=== PATIENT | female | born 1930 | race Caucasian/White ===

== ENCOUNTER 2016-04-26 12:36 | Inpatient (IN) | payer MEDICARE ==
--- NOTE | ~2016-04-26 | CN ---
Consultation Report [facility] [address] [place]. [address] NAME: SAMSON PALAFOX : 30 STATUS : ADM IN PAT#: [id number] AGE: 86 ADM/REG DATE : 04/26/16 MR#: [id number] REPORT SERV DATE: 04/27/16 DICTATED BY: DATE: REPORT STATUS : Draft TRANSCRIBED BY: MODL DATE: 04/27/16 NEUROLOGY CONSULTATION DATE OF CONSULTATION: 04/27/2016 REASON FOR CONSULT: Left eye ptosis. HISTORY OF PRESENT ILLNESS: This is an 86-year-old female who presented to [facility] secondary to acute onset of left eyelid ptosis with the patient's family, who reported the symptoms started on 04/26/2015 in the morning when the patient woke up. The patient, otherwise, does not appear to have vision difficulties and does not appear to have diplopia. The patient's family reports maybe mild swelling in the left face, but otherwise denies notice any left or any focal weakness or numbness. The patient does not appear to have any dysarthria or any language difficulty except for language difficulty and confusion that was at baseline secondary to the patient's dementia. The patient does have a diagnosis of al Alzheimer disease for the past six to seven years with the patient noted to have progressive memory decline especially with recent memory. The patient was noted to have difficulties with names as well as place. In addition, the patient was noted to start having problems recognizing people. The patient also required prompting with activities of daily living, but still able to perform most activities of daily living by herself. The patient's family denies similar events in the past with eyelid ptosis and denies any focal weakness. The patient does have recent coughing, but no other recent illness was noted. No fever or chill was otherwise reported. PAST MEDICAL HISTORY: Significant for Alzheimer disease for the past six to eight years with the patient still able to perform activities of daily living, but require prompting a help. The patient in addition was starting to have difficulty recognizing friends and family members. The patient in addition was also noted to have coronary artery disease, history of coronary artery bypass surgery, cardiac catheterization, hypertension, hyperlipidemia, history of breast cancer, on tamoxifen, paroxysmal atrial fibrillation status post cardioversion with the patient currently on Eliquis and amiodarone, history of congestive heart failure, and chronic kidney disease. ALLERGIES: TO BEE STING. FAMILY HISTORY: Significant for coronary artery disease. REVIEW OF SYSTEMS: Negative except for those mentioned in the HPI. HOME MEDICATIONS: Consist of amiodarone, Eliquis, aspirin, calcium with vitamin D, Ceftin, vitamin D3, coenzyme Q10, vitamin B12, Colace, EpiPen, vitamin D, Lasix, Mucinex, Namenda, Claritin, levothyroxine, Toprol, Remeron, potassium, Seroquel, Exelon, Crestor, Senokot, tamoxifen, . Consultation Report [place] [id number] [place]. [address] NAME: SAMSON PALAFOX : 30 STATUS : ADM IN [facility]#: [id number] AGE: 86 ADM/REG DATE : 04/26/16 MR#: [id number] REPORT SERV DATE: 04/27/16 DICTATED BY: DATE: REPORT STATUS : Draft TRANSCRIBED BY: MODL DATE: 04/27/16 SOCIAL HISTORY: The patient denies tobacco, alcohol, or recreational drug usage. PHYSICAL EXAMINATION: VITAL SIGNS: Overnight, the patient was noted to have vital signs with T-max of 98.9, heart rate of 71 to 82, respiration of 19 to 29. GENERAL: The patient is well developed, well nourished, in no acute distress. CARDIOVASCULAR: Regular rate and rhythm. No carotid bruits were otherwise auscultated. PULMONARY: Clear to auscultation bilaterally. NEUROLOGICAL: Generally, the patient is alert and oriented to self only. She is not recognizing family member at bedside. She is unable to provide name of a place, type of a building, or year or month. The patient is able to follow most of the simple and 2-step commands, and will have difficulties with complex commands. Decreased attention span at the time of evaluation. The patient was noted to have difficulties with registration and recall. Cranial nerves 2 through 12. Pupils equal, round, and reactive to light. At the time of evaluation, conjugate gaze was seen. The patient was noted to have left-sided ptosis with difficulty opening the left eyelid at all. Otherwise, bilateral frontal crease was noted to be normal with the patient noted to have questionable decreased nasolabial fold on the appeared symmetrical smile. Midline tongue. Normal palatal movement. The patient was noted to have mild decreased hearing, reports symmetrical sensation bilaterally. The patient's extraocular eye movement is noted to be mildly restricted with upward movement toward the left, but otherwise, noted to be intact. The patient demonstrated 5/5 bilateral upper and lower extremity strength. Normal muscle bulk and tone. Deep tendon reflex was 2+ throughout. No apparent ataxia was seen. Gait was not evaluated at time of evaluation. LABORATORY STUDIES: Demonstrated white blood cell count of 3.9, hemoglobin of 11.9, hematocrit of 36.4, and platelet count of 97. Chemistry panel: Sodium 144, potassium 3.8, chloride 108, bicarb 25, BUN of 11, creatinine 0.95, glucose of 93, calcium of 7.8, magnesium of 2.2. CT scan of the brain otherwise demonstrated no acute process. MRI of the brain is pending. IMPRESSION: Eyelid ptosis in the left with symmetrical pupillary reaction, possible decreased vertical eye movement with a leftward gaze. Question for associated decreased nasolabial fold. We will check MRI of the brain without contrast and MRA of the head without contrast for evaluation. Meanwhile recommending continue Eliquis and Lipitor for now. Differential diagnosis including superior brain tumor cranial nerve 3 palsy versus stroke. RECOMMENDATION: 1. MRI of the brain without contrast. 2. MRA of the brain without contrast. 3. Continue Lipitor and Eliquis. 4. Fasting lipid panel and hemoglobin A1c. 5. Will send for myasthenia gravis lab study. Consultation Report [place] [id number] [place]. [address] NAME: SAMSON PALAFOX : 30 STATUS : ADM IN PAT#: [id number] AGE: 86 ADM/REG DATE : 04/26/16 MR#: [id number] REPORT SERV DATE: 04/27/16 DICTATED BY: DATE: REPORT STATUS : Draft TRANSCRIBED BY: MODL DATE: 04/27/16 [facility]/MODL Carrington Lopez MD / [id number] CC: MD Lisa Lynch
--- NOTE | ~2016-04-26 | DS ---
Discharge Summary [facility] [address] [place]. [address] NAME: SAMSON PALAFOX : 30 STATUS : DIS IN PAT#: [id number] AGE: 86 ADM/REG DATE : 04/26/16 MR#: [id number] REPORT SERV DATE: 05/03/16 DICTATED BY: ECHO MIRAMONTES DATE: 05/02/16 REPORT STATUS : Draft TRANSCRIBED BY: MODL DATE: 05/02/16 ADMISSION DATE: 04/26/2016 DISCHARGE DATE: 05/01/2016 CONDITION ON DISCHARGE: Stable. DISPOSITION: Discharge back to her assisted living facility. She lives at [facility] and we are discharging patient back there in stable condition. DIAGNOSES ON DISCHARGE: 1. Pneumonia, probably left lower lobe early pneumonia that probably is evolving which got resolved with IV antibiotics. 2. Influenza A positive. Diagnoses which are all chronic in this patient include the followin. Coronary artery disease with CABG in 1997. 2. History of paroxysmal atrial fibrillation for which she is on Eliquis and amiodarone after she failed a HUBERT. 3. Moderately advanced dementia, for which patient is requiring to stay at an assisted living facility. 4. History of congestive heart failure, probably a combination of systolic and diastolic heart failure, however, as her ejection fraction that was most recent was 55%, it is probably heart failure with preserved ejection fraction. 5. History of chronic kidney disease, stage 3. 6. Chronic hyponatremia, which is stable. 7. Hypertension and hyperlipidemia, which are stable. 8. History of breast cancer - patient is on tamoxifen which is also stable at this time. BRIEF HOSPITAL COURSE: The patient is an 86-year-old white female patient, who was admitted to the hospital with signs and symptoms as outlined in history and physical exam. Essentially, she was admitted with a diagnosis of being influenza A positive, possible left lower lobe pneumonia and possible Smith's palsy on the left side of the eye as the patient had left eye ptosis too. The patient also had an elevated troponin upon admission and hence with a history of coronary artery disease and atrial fibrillation. The patient was also admitted to make sure that she did not have an acute coronary event again. The patient was started on IV antibiotics, started on Tamiflu and given supportive and symptomatic care. A Neurology consult was obtained for the left eye ptosis. An MRI of the brain and an MRA came back with no acute CVA. 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 The patient also had a test done for myasthenia gravis that came back negative. The patient's atrial fibrillation remained controlled throughout hospitalization as the patient has already been anticoagulated with Eliquis. This was continued and her amiodarone was continued too and she did well. Once the patient's breathing improved and she felt better overall, she is being discharged back to [facility] in stable condition. Discharge Summary [facility] [address] [place]. [address] NAME: SAMSON PALAFOX : 30 STATUS : DIS IN PAT#: [id number] AGE: 86 ADM/REG DATE : 04/26/16 MR#: [id number] REPORT SERV DATE: 05/03/16 DICTATED BY: ECHO MIRAMONTES DATE: 05/02/16 REPORT STATUS : Draft TRANSCRIBED BY: CECI DATE: 05/02/16 DISCHARGE MEDICATIONS: She is being discharged on the following medications: Amiodarone 100 mg p.o. daily, aspirin 81 mg p.o. daily, Lasix 40 mg p.o. daily, Levothyroxine 137 mcg p.o. daily. Claritin 10 mg p.o. daily. Toprol-XL 25 mg p.o. daily. Remeron 15 mg p.o. daily. Namenda XR 28 mg p.o. daily. Potassium chloride 10 mEq p.o. daily. Exelon patch 13.3 mg topically daily. Crestor 40 mg p.o. daily. Tamoxifen 20 mg p.o. daily. Eliquis 5 mg p.o. b.i.d. next Seroquel 25 mg p.o. t.i.d. Mucinex 600 mg p.o. b.i.d. LABORATORY STUDIES: I have the following labs on this patient upon discharge. Her blood cultures have come back with no growth in four days. Her CBC has come back completely normal. Her platelets were a little low at 104, but this was stable. Electrolyte profile was normal and her mild hypokalemia which showed potassium of 3 was corrected before discharge. Her BUN is 4, creatinine is 0.7. Hemoglobin A1c was 6.5. Culture of the upper respiratory tract did not show any growth of any strep. Her BNP came back at 236.1, which is probably chronically elevated because of chronic diastolic heart failure. Her procalcitonin came back normal at 0.12. Her strep screen came back negative. Her influenza screen for A and B came back positive for influenza A which is the reason why she was started on Tamiflu 75 mg p.o. b.i.d. until discharge. Radiological studies the patient has had include a brain CT scan without contrast, which came back with no acute stroke. The patient also had bilateral carotid ultrasound that did not show any significant stenosis in any of the carotid arteries, MRI of the brain without contrast and MRA which again did not show any evidence of any acute infarct and hence it was deemed that the left eye ptosis is secondary to an isolated cranial nerve 3 palsy and there is nothing to do about it now. This could also be Smith's palsy. Hence, the patient is being discharged back to [facility] in stable condition. I have spent about 40 minutes in dictating this discharge summary including [id number] encounter with the patient. CHRISTIAN/CECI Echo Miramontes M.D. / [id number]
--- NOTE | ~2016-04-26 | HP ---
History And Physical [place] [address] [place]. [address] NAME: SAMSON PALAFOX : 30 STATUS : ADM IN PAT#: [id number] AGE: 86 ADM/REG DATE : 04/26/16 MR#: [id number] REPORT SERV DATE: 04/26/16 DICTATED BY: ANTHONY RUSSELL DATE: 04/26/16 REPORT STATUS : Draft TRANSCRIBED BY: MODL DATE: 04/26/16 DATE OF ADMISSION: 04/26/2016 HISTORY OF PRESENT ILLNESS: The patient is a very pleasant 86-year-old female, resident of [facility], presented to [facility] accompanied with her two daughters who reported that she developed cough Thursday and she was coughing, not eating, not drinking, and not feeling well. Cough is nonproductive, but she is congested as well as she developed left eye drop today. She is not complaining of any visual changes, but the left eye drop is present as well as she does not have any chest pain, no shortness of breath. No fever. No rash. No headache. No other focal neurological deficit. All 14-point system review done except what is stated in the history of present illness. PAST MEDICAL HISTORY: Known to have history of coronary artery disease with a history of coronary artery bypass grafting in 1997; history of cardiac catheterization in 2009 with occluded arteries; hypertension; hyperlipidemia; history of breast cancer, on tamoxifen; history of paroxysmal atrial fibrillation with a history of HUBERT cardioversion in the past, currently on Eliquis and amiodarone; history of dementia; history of congestive heart failure, noted a systolic, but according to the echocardiogram present in the computer in 2012, her ejection fraction was 55%, I do not know if there was any other echocardiogram done afterwards, needs to be clarified; history of hypothyroidism, on replacement; history of chronic kidney disease, stage III; and history of chronic hyponatremia in the past. ALLERGIES: SHE IS ONLY ALLERGIC TO BEE STINGS. THERE IS NO MEDICATION-RELATED ALLERGY. HOME MEDICATIONS: Amiodarone 100 mg a day, Eliquis 5 mg p.o. b.i.d., aspirin 81 mg daily, calcium with vitamin D one dose p.o. daily, cefuroxime 250 p.o. b.i.d., vitamin D3 1000 units daily, coenzyme Q 100 mg a day, vitamin B12 500 mg daily, Colace 100 mg a day, EpiPen daily, vitamin D 50,000 daily, Lasix 40 daily, Mucinex 600 with breakfast, levothyroxine 137 a day, Claritin 10 a day, Namenda XR 28 daily, Toprol-XL 25 a day, Remeron 15 a day, potassium chloride 10 mEq a day, Seroquel 25 mg three times a day, Exelon 13.3 mg topical daily, Crestor 40 mg a day, Senokot two tablets with supper, tamoxifen 20 mg a day, Bactrim 100 mg a day, multivitamins PreserVision daily. PAST SURGICAL HISTORY: Includes left breast cancer with lumpectomy, right breast cancer, left mastectomy, and history of coronary artery bypass grafting. SOCIAL HISTORY: The patient is resident of [facility]. Her primary care physician is Dr. Helder Alcantar, but she sees nurse practitioner. She is a social drinker. Not currently smoking, smoked in a long time ago. Retired teacher of elementary school. She has two daughters who are at the bedside. FAMILY HISTORY: Positive for coronary artery disease on both sides. REVIEW OF SYSTEMS: All 14-point review of systems done are negative except what is stated in the history of present illness. History And Physical [address] [address] NAME: SAMSON PALAFOX : 30 STATUS : ADM IN [facility]#: [id number] AGE: 86 ADM/REG DATE : 04/26/16 MR#: [id number] REPORT SERV DATE: 04/26/16 DICTATED BY: ANTHONY RUSSELL DATE: 04/26/16 REPORT STATUS : Draft TRANSCRIBED BY: CECI DATE: 04/26/16 PHYSICAL EXAMINATION: GENERAL: Overweight female, not in acute distress, resting quietly. VITAL SIGNS: Blood pressure 135/62, heart rate 70, respiratory rate 18, and oxygen saturation 97% on room air. HEENT: Head atraumatic and normocephalic. Conjunctivae are clear. Pupils are equal and reactive to light and accommodation. Extraocular muscles are intact. NECK: Supple. Trachea is midline. No supraclavicular or cervical lymphadenopathy. LUNGS: Coarse breath sounds bilaterally with some rhonchi at the bases, slightly decreased respiratory effort with dry cough. CARDIOVASCULAR SYSTEM: Regular rate and rhythm. Point of maximal impulse not displaced. ABDOMEN: Soft, nontender, and nondistended. Positive normoactive bowel sounds. EXTREMITIES: No clubbing, cyanosis, or edema. SKIN: Normal color and turgor. NEUROLOGIC: Cranial nerves III through XII are intact except ptosis on the left side. There is no visual abnormality on the left side. Deep tendon reflexes are 2/4 bilaterally in the upper and lower extremities. Muscle strength is 5/5 bilaterally in the upper and lower extremities. Sensations are intact. Can follow commands. Can answer questions. PSYCHIATRIC: Normal mood and affect. LABORATORY RESULTS: Sodium 139, potassium 3.8, chloride 103, carbon dioxide 26, BUN 14, creatinine 1.22, blood sugar is 89, AST 98, ALT 52, and troponin 0.1. Her creatinine on 12/07/2013 was 1.2, so looks like her baseline creatinine. White count 6, hemoglobin 12.9, hematocrit 39.7, and platelet count 106. PT 15.2 and INR 1.2. UA did not show any evidence of urinary infection. Chest x-ray done today, no acute cardiopulmonary abnormality, stable eventrated left diaphragm, coronary artery bypass grafting changes and surgical clips over the epigastrium, stable calcified right upper lobe granuloma. CT of the brain without contrast done in the emergency room, no acute intracranial abnormality, progressive since 2013, chronic ischemic white matter changes with demyelination disease. Troponin 0.12. She has positive influenza A. Strep screen is negative. EKG showed atrial fibrillation with a junctional pacemaker with premature ventricular contractions, inferoposterior infarction of undetermined age, ST-T waves abnormality, prolonged QT, and ventricular rate of 83. ASSESSMENT: This is a very pleasant 86-year-old female with a past medical history of atrial fibrillation, coronary artery disease, presented with: 1. Influenza. 2. Possible pneumonia. 3. Left eye ptosis, possible cranial nerve palsy, possible Smith's palsy versus cerebrovascular accident. 4. Elevated troponin without any chest pain, possible demand ischemia versus acute coronary event. 5. History of coronary artery disease. 6. History of atrial fibrillation. 7. Dementia. History And Physical [address] [address] NAME: SAMSON PALAFOX : 30 STATUS : ADM IN [facility]#: [id number] AGE: 86 ADM/REG DATE : 04/26/16 MR#: [id number] REPORT SERV DATE: 04/26/16 DICTATED BY: ANTHONY RUSSELL DATE: 04/26/16 REPORT STATUS : Draft TRANSCRIBED BY: CECI DATE: 04/26/16 PLAN: 1. We will admit the patient to telemetry bed. For her influenza, we will put her on Tamiflu, although her symptoms started on Thursday, she may need a couple of days. 2. Possible pneumonia with her cough being very deep, I will order CT on the chest without contrast, blood cultures, and procalcitonin level. I will put her on Rocephin and azithromycin, and will check the CT of the chest without contrast. 3. Left eye ptosis. This could be a possible cranial nerve palsy from viral flu influenza versus Smith's palsy versus possible CVA, although the patient does not have any other focal symptoms, so probably isolated cranial nerve palsy. She has preserved vision and all ocular movements are intact on the left eye. I am going to give the patient aspirin 325 mg a day, at home, she takes 81, so we will increase to 325, and will do MRI and MRA of the brain. If she does not have stroke, her aspirin should be decreased to her home dose 81 mg a day and neurologist also will be consulted. Elevated troponin with a history of coronary artery disease, but asymptomatic. Aspirin will be given and we will continue her cardiac medications. We will check serial troponins. I think this is probably demand ischemia. We will ask operator and truck driver to see this patient in consultation. Atrial fibrillation, currently rate controlled. 4. Polypharmacy. 5. Dementia. My partner will see this patient starting tomorrow morning. /CECI Anthony Russell M.D. / [id number] CC: MD MARY Lynch SHERRY R.
[~2016-04-26 12:36] MED LIST: ALEVE220 MG PO; ARICEPT5 PO; ASAB PO; ATEN25 PO; BESIVANCE0.6 % OPH; CALTRAT600 PO; CIP5 PO; CORDARONE PO; CRESTOR40 MG PO; DIGITEK0.25 MG PO; DIOVAN HC1 PO; DIOVAN HCT160 MG/25 PO; DSS PO; ELIQUIS 2.5 MG2.5 MG PO; ELIQUIS 5 MG TAB5 MG PO; EPIPEN0.3 IM; FOSAMAX35 MG PO; GANIDIN NR100 MG/5 M PO; HALF81 PO; HCTZ25B PO; I VITE PO; I-VITE PO; IMOD PO; K-TABS10 MEQ PO; KCL PO; KCL40UDL PO; KLOR-CON 1010 MEQ PO; KLOR-CON M2020 MEQ PO; L20 PO; L40 PO; LEVOTHYROXIN125 MCG PO; LOP25 PO; MAALOX MAX PO; MACRODANTIN 10100 MG PO; MINOCIN100 PO; MIRALAXPKT PO; MOMUD PO; MUCINEX DM1 TAB PO; NAMENDA5 PO; NAMENXR28 PO; NIACIN 500 PO; NIASPAN500 PO; NOLV10 PO; NORCO1 TA1 PO; OCUVITE PO; OSTEOPOROSIS MED PO; PACERONE100 MG PO; PR12.5 PO; PROLENSA1.6 ML OPH; REM15 PO; REMERON45 MG PO; SENTAB PO; SYN125 PO; T PO; TAMOXIFEN20 M1 PO; TESS PO; VIACTIV PO; ZETIA PO; ZOFRAN4 PO; [UNRECOGNIZED DRUG - OTHER] PO; [UNRECOGNIZED DRUG - OTHER] PO
[2016-04-26 13:47] LABS: BASOPHILS 0.2 %; BASOPHILS ABSOLUTE 0.01 10/3/uL (0.0-0.16); EOSINOPHILS 0 %; HEMATOCRIT 39.7 % (36.0-48.0); HEMOGLOBIN 12.9 g/dL (12.0-16.0); IMMATURE GRANULOCYTES 0.3 %; IMMATURE GRANULOCYTES ABSOLUTE 0.02 10/3/uL (0.0-0.11); LYMPHOCYTES 25.8 %; LYMPHOCYTES ABSOLUTE 1.54 10/3/uL (0.67-4.30); MANUAL DIFF NO %; MEAN CORPUS HGB CONC 32.5 g/dL (32.0-36.0); MEAN CORPUSCULAR HEMOGLOB 28.4 pg (26.0-34.0); MEAN CORPUSCULAR VOLUME 87.4 fL (80-100); MEAN PLATELET VOLUME 11.7 fL (9.2-13.0); MONOCYTES 18.1 %; MONOCYTES ABSOLUTE 1.08 10/3/uL (0.21-1.20); NEUTROPHILS 55.6 %; NEUTROPHILS ABSOLUTE 3.33 10/3/uL (2.02-8.40); PLATELET COUNT 106 10/3/uL (150-400); RED CELL COUNT 4.54 10/6/uL (4.0-5.6)
[2016-04-26 13:56] LABS: INTERNATIONAL NORMAL RATI 1.2 UNITS (-); PARTIAL THROMBO TIME 25.2 SEC (22.5-37.2); PROTIME (NOT ORD) 15.2 SEC (12.0-14.5)
[2016-04-26 14:00] LABS: INFLUENZA A SCREEN POSITIVE (NEGATIVE)
[2016-04-26 14:12] LABS: INFLUENZA B SCREEN NEGATIVE (NEGATIVE)
[2016-04-26] MEDS ORDERED: PACERONE200 MG PO (14:28)
[2016-04-26] MEDS ORDERED: CO Q-10100 MG PO (14:29)
[2016-04-26] MEDS ORDERED: DSS PO (14:29)
[2016-04-26] MEDS ORDERED: ASAB PO (14:29)
[2016-04-26] MEDS ORDERED: CLARIT10 PO (14:30)
[2016-04-26] MEDS ORDERED: REM15 PO (14:30)
[2016-04-26] MEDS ORDERED: TOPXL25 PO (14:30)
[2016-04-26] MEDS ORDERED: L40 PO (14:30)
[2016-04-26] MEDS ORDERED: LEVOTHYROXIN137 MCG PO (14:30)
[2016-04-26] MEDS ORDERED: NAMENXR28 PO (14:31)
[2016-04-26] MEDS ORDERED: MICRO-K10 MEQ PO (14:31)
[2016-04-26] MEDS ORDERED: CRESTOR40 MG PO (14:32)
[2016-04-26] MEDS ORDERED: SENTAB PO (14:32)
[2016-04-26] MEDS ORDERED: TAMOXIFEN20 M1 PO (14:32)
[2016-04-26] MEDS ORDERED: EXELON1 EACH TOP (14:32)
[2016-04-26] MEDS ORDERED: PROLOP100 PO (14:33)
[2016-04-26] MEDS ORDERED: VITD PO (14:34)
[2016-04-26] MEDS ORDERED: VIACTIV PO (14:34)
[2016-04-26] MEDS ORDERED: B12250T PO (14:34)
[2016-04-26] MEDS ORDERED: ELIQUIS 5 MG TAB5 MG PO (14:35)
[2016-04-26] MEDS ORDERED: VITAMIN D31000 UNIT PO (14:35)
[2016-04-26] MEDS ORDERED: SEROQUEL25 PO (14:36)
[2016-04-26] MEDS ORDERED: PRESERVISION A1 EAC1 PO (14:36)
[2016-04-26] MEDS ORDERED: EPIPEN0.3 IM (14:36)
[2016-04-26] MEDS ORDERED: CEFT2 PO (14:37)
[2016-04-26] MEDS ORDERED: MUCINEX600 MG PO (14:37)
[2016-04-26 14:51] LABS: ASCORBIC ACID (UR NOT ORDER) 40 (NEG); BILIRUBIN, URINE NEGATIVE (NEG); ER URINALYSIS TAT 0 Hrs 14 Mins; KETONE, URINE TRACE MG/DL (NEG); LEUKOCYTE ESTERASE(NOT OR NEG (NEG); NITRITE (URINE) NEG (NEG); WBC (NOT ORDERED) (RFLEX) 2 (0-5)
[2016-04-26 15:05] LABS: A/G RATIO 0.8 (0.7-1.9); ALBUMIN 2.7 G/DL (3.5-5.0); CHLORIDE, SERUM 103 MMOL/L (96-112); CREATININE 1.22 MG/DL (0.55-1.02); GFR AFRICAN AMERICAN 46 ML/MIN (>=60); GFR NON AFRICAN AMERICAN 40 ML/MIN (>=60); GLOBULIN 3.3 G/DL (2.5-4.1); GLUCOSE, SERUM 89 MG/DL (60-99); POTASSIUM, SERUM 3.8 MMOL/L (3.5-5.3); SGOT(AST) 98 U/L (5-40); SGPT(ALT) 52 U/L (5-65); SODIUM, SERUM 139 MMOL/L (135-148)
[2016-04-26 15:07] LABS: ALKALINE PHOSPHATASE 60 U/L (45-117); BUN (BLOOD UREA NITROGEN) 14 MG/DL (6-23); CALCIUM, SERUM 7.9 MG/DL (8.5-10.4); CO2 (CARBON DIOXIDE) 26 MMOL/L (24-34); TOTAL BILIRUBIN 0.8 MG/DL (0-1.2)
[2016-04-26 15:09] LABS: TROPONIN I 0.12 NG/ML (<0.05)
[2016-04-26 17:54] LABS: TROPONIN I 0.12 NG/ML (<0.05)
[2016-04-27 00:50] LABS: ULTRASENSITIVE TSH 2.1 MCIU/ML (0.358-3.740)
[2016-04-27 01:02] LABS: PROCALCITONIN 0.12 ng/mL (<0.5)
[2016-04-27 06:42] LABS: BASOPHILS 0 %; EOSINOPHILS 0.8 %; EOSINOPHILS ABSOLUTE 0.03 10/3/uL (0.0-0.53); HEMATOCRIT 36.4 % (36.0-48.0); HEMOGLOBIN 11.9 g/dL (12.0-16.0); LYMPHOCYTES 26.9 %; LYMPHOCYTES ABSOLUTE 1.05 10/3/uL (0.67-4.30); MEAN CORPUS HGB CONC 32.7 g/dL (32.0-36.0); MEAN CORPUSCULAR HEMOGLOB 29.5 pg (26.0-34.0); MEAN PLATELET VOLUME 11.7 fL (9.2-13.0); MONOCYTES ABSOLUTE 0.47 10/3/uL (0.21-1.20); NEUTROPHILS 60.3 %; NEUTROPHILS ABSOLUTE 2.36 10/3/uL (2.02-8.40); PLATELET COUNT 97 10/3/uL (150-400); RBC DISTRIBUTION WIDTH 16.1 % (12.0-16.0); RED CELL COUNT 4.04 10/6/uL (4.0-5.6); WHITE BLOOD CELLS 3.9 10/3/uL (4.5-10.5)
[2016-04-27 06:49] LABS: MANUAL DIFF NO %; MEAN CORPUSCULAR VOLUME 90.1 fL (80-100)
[2016-04-27 08:18] LABS: BUN (BLOOD UREA NITROGEN) 11 MG/DL (6-23); CALCIUM, SERUM 7.8 MG/DL (8.5-10.4); CHLORIDE, SERUM 108 MMOL/L (96-112); CO2 (CARBON DIOXIDE) 25 MMOL/L (24-34); CREATININE 0.95 MG/DL (0.55-1.02); FREE T4 1.47 NG/DL (0.76-1.46); GFR AFRICAN AMERICAN 63 ML/MIN (>=60); GFR NON AFRICAN AMERICAN 54 ML/MIN (>=60); GLUCOSE, SERUM 93 MG/DL (60-99); SODIUM, SERUM 144 MMOL/L (135-148)
[2016-04-27 08:19] LABS: POTASSIUM, SERUM 3.8 MMOL/L (3.5-5.3); TROPONIN I 0.08 NG/ML (<0.05)
[2016-04-27 08:20] LABS: CPK (IF ELEVATED MB BANDS) 234 U/L (0-200)
[2016-04-27 09:11] LABS: CK-MB 42.8 NG/ML
[2016-04-27 09:12] LABS: CKMB INDEX (NOT ORD) 18.3
[2016-04-28 05:54] LABS: BASOPHILS 0.2 %; BASOPHILS ABSOLUTE 0.01 10/3/uL (0.0-0.16); EOSINOPHILS 1.4 %; EOSINOPHILS ABSOLUTE 0.07 10/3/uL (0.0-0.53); HEMATOCRIT 38.4 % (36.0-48.0); HEMOGLOBIN 12.6 g/dL (12.0-16.0); IMMATURE GRANULOCYTES 0.4 %; IMMATURE GRANULOCYTES ABSOLUTE 0.02 10/3/uL (0.0-0.11); LYMPHOCYTES 41.9 %; LYMPHOCYTES ABSOLUTE 2.03 10/3/uL (0.67-4.30); MEAN CORPUS HGB CONC 32.8 g/dL (32.0-36.0); MEAN CORPUSCULAR HEMOGLOB 29.4 pg (26.0-34.0); MEAN CORPUSCULAR VOLUME 89.5 fL (80-100); MEAN PLATELET VOLUME 12.7 fL (9.2-13.0); MONOCYTES 9.9 %; MONOCYTES ABSOLUTE 0.48 10/3/uL (0.21-1.20); NEUTROPHILS 46.2 %; NEUTROPHILS ABSOLUTE 2.24 10/3/uL (2.02-8.40); PLATELET COUNT 100 10/3/uL (150-400); RED CELL COUNT 4.29 10/6/uL (4.0-5.6); WHITE BLOOD CELLS 4.9 10/3/uL (4.5-10.5)
[2016-04-28 05:55] LABS: MANUAL DIFF NO %
[2016-04-28 06:24] LABS: A/G RATIO 0.8 (0.7-1.9); ALBUMIN 2.6 G/DL (3.5-5.0); ALKALINE PHOSPHATASE 52 U/L (45-117); BUN (BLOOD UREA NITROGEN) 8 MG/DL (6-23); CALCIUM, SERUM 8.1 MG/DL (8.5-10.4); CHLORIDE, SERUM 107 MMOL/L (96-112); CO2 (CARBON DIOXIDE) 24 MMOL/L (24-34); CREATININE 0.82 MG/DL (0.55-1.02); GFR AFRICAN AMERICAN 75 ML/MIN (>=60); GFR NON AFRICAN AMERICAN 65 ML/MIN (>=60); GLOBULIN 3.1 G/DL (2.5-4.1); GLUCOSE, SERUM 101 MG/DL (60-99); PHOSPHORUS, SERUM 2.8 MG/DL (2.5-4.5); POTASSIUM, SERUM 3.6 MMOL/L (3.5-5.3); SGOT(AST) 72 U/L (5-40); SGPT(ALT) 37 U/L (5-65); SODIUM, SERUM 143 MMOL/L (135-148); TOTAL PROTEIN 5.7 G/DL (6.0-8.5)
[2016-04-28 06:33] LABS: CHOLESTEROL 119 MG/DL (< 200); HDL CHOLESTEROL 30 MG/DL (> 49); LDL CHOLESTEROL 69 MG/DL (< 130); NON-HDL CHOLESTEROL 89 MG/DL (< 160); TOTAL BILIRUBIN 0.2 MG/DL (0-1.2); TRIGLYCERIDE 103 MG/DL (< 150)
[2016-04-29 07:20] LABS: BASOPHILS 0.3 %; BASOPHILS ABSOLUTE 0.01 10/3/uL (0.0-0.16); EOSINOPHILS 3.6 %; EOSINOPHILS ABSOLUTE 0.13 10/3/uL (0.0-0.53); HEMATOCRIT 35.8 % (36.0-48.0); HEMOGLOBIN 11.4 g/dL (12.0-16.0); LYMPHOCYTES 47.1 %; LYMPHOCYTES ABSOLUTE 1.68 10/3/uL (0.67-4.30); MEAN CORPUS HGB CONC 31.8 g/dL (32.0-36.0); MEAN CORPUSCULAR HEMOGLOB 28.1 pg (26.0-34.0); MEAN CORPUSCULAR VOLUME 88.4 fL (80-100); MEAN PLATELET VOLUME 11.5 fL (9.2-13.0); MONOCYTES ABSOLUTE 0.32 10/3/uL (0.21-1.20); NEUTROPHILS ABSOLUTE 1.43 10/3/uL (2.02-8.40); PLATELET COUNT 99 10/3/uL (150-400); RBC DISTRIBUTION WIDTH 16.2 % (12.0-16.0); RED CELL COUNT 4.05 10/6/uL (4.0-5.6); WHITE BLOOD CELLS 3.6 10/3/uL (4.5-10.5)
[2016-04-29 07:25] LABS: MANUAL DIFF NO %
[2016-04-29 07:32] LABS: ALBUMIN 2.3 G/DL (3.5-5.0); BUN (BLOOD UREA NITROGEN) 6 MG/DL (6-23); CALCIUM, SERUM 7.8 MG/DL (8.5-10.4); CHLORIDE, SERUM 108 MMOL/L (96-112); CO2 (CARBON DIOXIDE) 28 MMOL/L (24-34); CREATININE 0.72 MG/DL (0.55-1.02); GFR AFRICAN AMERICAN 88 ML/MIN (>=60); GFR NON AFRICAN AMERICAN 76 ML/MIN (>=60); GLUCOSE, SERUM 93 MG/DL (60-99); PHOSPHORUS, SERUM 2.9 MG/DL (2.5-4.5); POTASSIUM, SERUM 3.4 MMOL/L (3.5-5.3); SODIUM, SERUM 145 MMOL/L (135-148)
[2016-05-01 07:06] LABS: BASOPHILS 0.2 %; BASOPHILS ABSOLUTE 0.01 10/3/uL (0.0-0.16); EOSINOPHILS 4.1 %; EOSINOPHILS ABSOLUTE 0.19 10/3/uL (0.0-0.53); HEMATOCRIT 37.5 % (36.0-48.0); HEMOGLOBIN 12.3 g/dL (12.0-16.0); IMMATURE GRANULOCYTES 0.2 %; IMMATURE GRANULOCYTES ABSOLUTE 0.01 10/3/uL (0.0-0.11); LYMPHOCYTES 33.3 %; LYMPHOCYTES ABSOLUTE 1.55 10/3/uL (0.67-4.30); MEAN CORPUS HGB CONC 32.8 g/dL (32.0-36.0); MEAN CORPUSCULAR HEMOGLOB 28.1 pg (26.0-34.0); MEAN CORPUSCULAR VOLUME 85.8 fL (80-100); MEAN PLATELET VOLUME 10.4 fL (9.2-13.0); MONOCYTES 11.4 %; MONOCYTES ABSOLUTE 0.53 10/3/uL (0.21-1.20); NEUTROPHILS 50.8 %; NEUTROPHILS ABSOLUTE 2.37 10/3/uL (2.02-8.40); PLATELET COUNT 104 10/3/uL (150-400); RBC DISTRIBUTION WIDTH 15.9 % (12.0-16.0); RED CELL COUNT 4.37 10/6/uL (4.0-5.6); WHITE BLOOD CELLS 4.7 10/3/uL (4.5-10.5)
[2016-05-01 07:07] LABS: MANUAL DIFF NO %
[2016-05-01 07:22] LABS: BUN (BLOOD UREA NITROGEN) 4 MG/DL (6-23); CHLORIDE, SERUM 103 MMOL/L (96-112); CO2 (CARBON DIOXIDE) 33 MMOL/L (24-34); CREATININE 0.76 MG/DL (0.55-1.02); GFR AFRICAN AMERICAN 82 ML/MIN (>=60); GFR NON AFRICAN AMERICAN 71 ML/MIN (>=60); GLUCOSE, SERUM 101 MG/DL (60-99); SODIUM, SERUM 145 MMOL/L (135-148)
[2016-05-03 18:11] LABS: ACETYLCHOLINE REC BINDING AB <0.30 nmol/L (<0.31); ACETYLCHOLINE RECEPT BLOCK AB <15 % (<15); ACETYLCHOLINE RECEPTOR MOD AB 12 % (<32); STRIATED MUSCLE ANTIBODY Negative (NEG); STRIATED MUSCLE ANTIBODY TITER ND
== END 2016-05-01 21:21 | disposition home or self-care (01) | DRG 194 ==
LOC: ER 12:36 → 1SO 18:25
PROVIDERS: Emergency Medicine; Hospitalist; Psychiatry & Neurology Neurology
DX: J10.00 Influenza due to other identified influenza virus with unspecified type of pneumonia (principal); I13.0 Hypertensive heart and chronic kidney disease with heart failure and stage 1 through stage 4 chronic kidney disease, or unspecified chronic kidney disease; I50.32 Chronic diastolic (congestive) heart failure; I48.0 Paroxysmal atrial fibrillation; H49.02 Third [oculomotor] nerve palsy, left eye; G30.9 Alzheimer's disease, unspecified; N18.3 Chronic kidney disease, stage 3 (moderate); F02.80 Dementia in other diseases classified elsewhere, unspecified severity, without behavioral disturbance, psychotic disturbance, mood disturbance, and anxiety; E78.5 Hyperlipidemia, unspecified; E03.9 Hypothyroidism, unspecified; I25.10 Atherosclerotic heart disease of native coronary artery without angina pectoris; H02.402 Unspecified ptosis of left eyelid; Z87.891 Personal history of nicotine dependence; Z95.1 Presence of aortocoronary bypass graft; Z85.3 Personal history of malignant neoplasm of breast; Z90.12 Acquired absence of left breast and nipple; Z79.01 Long term (current) use of anticoagulants; Z79.82 Long term (current) use of aspirin; Z79.899 Other long term (current) drug therapy; Z91.030 Bee allergy status
CPT/HCPCS: 70450; 70544; 70551; 71020; 71250; 80048; 80053; 80061; 80069; 81001; 82550; 82553; 83036; 83519; 83519-59; 83735; 83880; 84100; 84145; 84439; 84443; 84484; 85025; 85610; 85730; 86255; 87040; 87070; 87804; 87880; 93005; 93880; 94640; 97161-GP; 97165-GO; 99285; A9270-GY; C8929; G8978-CK-GP; G8979-CJ-GP; G8987-CL-GO; G8988-CK-GO; J0456; Q9957

== ENCOUNTER 2016-05-05 11:15 | Inpatient (IN) | payer MEDICARE ==
--- NOTE | ~2016-05-05 | HP ---
History And Physical [address] [place]. [address] NAME: SAMSON SHARP : 30 STATUS : ADM IN PAT#: [id number] AGE: 86 ADM/REG DATE : 05/05/16 MR#: [id number] REPORT SERV DATE: 05/06/16 DICTATED BY: ECHO MIRAMONTES DATE: 05/05/16 REPORT STATUS : Draft TRANSCRIBED BY: MODL DATE: 05/05/16 DATE OF ADMISSION: 05/05/2016 HISTORY OF PRESENT ILLNESS: Ms Samson Sharp is an 86-year-old white female patient, who was discharged 2 days ago by myself to [facility]. She complained of a little chest discomfort with cough at [facility] and they brought her back because she was found to be in atrial fibrillation with rapid ventricular response rate. The patient has known atrial fibrillation. The patient was examined at bedside and at bedside she is already being put on IV Cardizem drip and her heart rate is still in the 110s and 120s and she is of course in chronic atrial fibrillation. The patient at this time denies any chest discomfort, palpitations, shortness of breath. She denies any nausea, vomiting, abdominal pain, dysuria, hematuria. She denies any joint pains anywhere. There is no leg swelling. REVIEW OF SYSTEMS: Rest of the systems were negative for all systems. PAST MEDICAL HISTORY: Very recently discharged from the hospital for left lower lobe pneumonia that has resolved. Influenza A that has been treated completely, mild cough however is persisting. The patient also has chronic atrial fibrillation for which she is on amiodarone, Toprol-XL, and is anticoagulated with Eliquis. The patient also has advanced dementia and is chronically mildly confused for which she is staying at the assisted living facility [facility]. Other chronic diagnoses also include coronary artery disease with CABG in 1987, 1997, history of congestive heart failure, a combination of systolic and diastolic heart failure but with preserved ejection fraction at 55%. Chronic kidney disease, stage 3. Chronic hyponatremia which is stable. Hypertension and hyperlipidemia which are stable and history of breast cancer which is also stable and patient on tamoxifen at this time. SOCIAL HISTORY: The patient does not smoke or drink or do any drugs. She resides at [facility] and has been brought in by family today. FAMILY HISTORY: Family history itself is noncontributory to the present problem. ALLERGIES: THE PATIENT DOES HAVE ALLERGY TO VENOM FROM BEE STING FOR WHICH SHE IS GIVEN P.R.N. EPINEPHRINE THAT SHE USES P.R.N. ONLY. HOME MEDICATIONS: Include amiodarone 100 mg once a day, aspirin 81 mg once a day, Lasix 40 mg once a day, levothyroxine 137 mcg once a day, Claritin 10 mg once a day, Toprol-XL 25 mg once a day, mirtazapine or Remeron 15 mg once a day, Namenda XR 28 mg once a day, potassium 10 mEq once History And Physical [address] [address] NAME: SAMSON SHARP : 30 STATUS : ADM IN [facility]#: [id number] AGE: 86 ADM/REG DATE : 05/05/16 MR#: [id number] REPORT SERV DATE: 05/06/16 DICTATED BY: ECHO MIRAMONTES DATE: 05/05/16 REPORT STATUS : Draft TRANSCRIBED BY: CECI DATE: 05/05/16 a day, Exelon patch 13.3 mg patch once a day, Crestor 40 mg once a day, tamoxifen 20 mg once a day, Eliquis 5 mg p.o. b.i.d., Seroquel 25 mg p.o. t.i.d., epinephrine p.r.n., Mucinex 600 mg p.o. b.i.d. She was recently put on levofloxacin but she has completed her therapy now. PHYSICAL EXAMINATION: GENERAL: On examination, the patient is alert, awake, oriented, and appears to be quite comfortable with the Cardizem drip. She is still has a dry cough and every time she coughs her heart rate goes up even more. VITAL SIGNS: Show that her blood pressure is 133/66, pulse is anywhere from 120s to 130s on Cardizem. Temperature afebrile, oxygen saturation 92% at 2 L/minute. GENERAL: Skin and mucous membranes appear moist. The patient actually does not seem to be confused at this time. She knows where she is and she tells me that her family has stepped out. She herself denies any new complaints now. HEENT: Unremarkable. There is no JVD. There is no thyromegaly. CARDIOVASCULAR: S1, S2 appreciated. Irregular rhythm noted. Tachycardia noted. RESPIRATORY: Clear lungs. No rales or rhonchi noted. ABDOMEN: Obese, soft, nontender, nondistended. No hepatosplenomegaly noted. No masses noted. Bowel sounds are appreciated. EXTREMITIES: There is no pedal edema in both lower extremities. Remember the patient is on Lasix. Pedal pulses are well felt. NEUROLOGIC: No deficits at this time except moderately advanced dementia. MUSCULOSKELETAL: No acute swelling or redness in any of the major joints. PSYCHIATRIC: The patient is mildly confused because of chronic dementia which is also chronic. LABORATORY: Labs that I have on this patient according to Dr. Mancuso include the following. CBC is completely normal. INR is 1.6. I am not sure why INR was checked. Sodium is 143, potassium is 3.3 which is slightly lower which will be replaced per electrolyte protocol. BUN is 12, creatinine is 1.1 which is her chronic baseline. Troponin I is mildly elevated at 0.06 which is likely demand related. BNP is chronically elevated mildly at 316.2, which is her baseline. Chest x-ray portable shows low lung volumes because of atelectasis and status post CABG. Other than that, no infiltrate. ASSESSMENT: Pleasant patient that I had just discharged 2 days ago for rapid atrial fibrillation/atrial fibrillation with rapid ventricular response rate. The patient has been currently started on IV Cardizem per ER physician Dr. Mancuso. We will get Cardiology consult to see if we can adjust her medications either increase her amiodarone and/or increase her Toprol-XL. This is probably all that it should take to get her rate down and off Cardizem drip within the next day or 2. Other than that, we will restart her on entire list of her home medications. Please see my above dictation and we will admit her on 6 on cardiac telemetry and get Cardiology consult. RRA/MODL History And Physical [address] [place]. [address] NAME: SAMSON SHARP : 30 STATUS : ADM IN [facility]#: [id number] AGE: 86 ADM/REG DATE : 05/05/16 MR#: [id number] REPORT SERV DATE: 05/06/16 DICTATED BY: ECHO MIRAMONTES DATE: 05/05/16 REPORT STATUS : Draft TRANSCRIBED BY: CECI DATE: 05/05/16 Echo Miramontes M.D. / [id number] CC: Clfif Bell
--- NOTE | ~2016-05-05 | CN ---
Consultation Report [facility] [address] [place]. [address] NAME: SAMSON PALAFOX : 30 STATUS : ADM IN PAT#: [id number] AGE: 86 ADM/REG DATE : 05/05/16 MR#: [id number] REPORT SERV DATE: 05/06/16 DICTATED BY: STACEY AGUAYO DATE: 05/05/16 REPORT STATUS : Draft TRANSCRIBED BY: CECI DATE: 05/05/16 CARDIOLOGY CONSULTATION NOTE DATE OF CONSULTATION: HISTORY OF PRESENT ILLNESS: This 86-year-old white female, remote smoker (quit over 50 years ago) was admitted with increasing problems with dry cough and atrial fibrillation with rapid ventricular response. She had previously had seen Dr. Isra Avalos in cardiology consultation and now plans is to see Dr. Reeves as Dr. Avalos is now retired and . This lady has had recent pneumonia and influenza and is not on an VICKEY inhibitor. She does have chronic atrial fibrillation, on apixaban anticoagulant therapy along with amiodarone, aspirin, vitamins, levothyroxine, metoprolol, Remeron, and potassium. She is on Exelon therapy with a history of chronic dementia and is now in assisted living. She takes Crestor for hyperlipoproteinemia. FAMILY HISTORY: Positive for heart disease. Her troponin is only 0.06 without chest pain or ST elevation on EKG. EKG otherwise shows atrial fibrillation with rapid ventricular response with now rates in the 80- to 90-beat per minute range on a Cardizem drip. She has a history of hypertension and has had previous bypass grafting for coronary artery disease by Dr. Jamey Brooks many years ago. She is intolerant to Hymenoptera stings and is a . She has 4 children, one of which has had coronary disease. She has no orthopnea and has not been having chest pain or hemoptysis. No history of recent stroke or transient ischemic attack, but her memory has been diminished for quite some time and reasonably stable, according to the daughter. She had been in Rehabilitation after recent admission for pneumonia and influenza at [facility]. REVIEW OF SYSTEMS: Otherwise all negative. PHYSICAL EXAMINATION: VITAL SIGNS: Blood pressure is 135/70. HEENT: Head is normocephalic. Eyes: PERRLA. Nose had no epistaxis. SKIN: Clear of ulceration. NECK: Supple without jugular venous distention or carotid bruits. CHEST: Some rhonchi in the right base. I hear no rales or wheezes. HEART: Irregular rhythm, variable S1, normal S2. No murmurs, gallops, or pericardial friction rubs. ABDOMEN: Benign nontender. She is overweight. EXTREMITIES: No clubbing, edema, or cyanosis. NEUROLOGIC: Reveals her to be confused and demented. She is able to answer questions yes and no and depends on her daughter for most of her answers. She moves to command and has no other focal motor or sensory deficits. CLINICAL IMPRESSIONS: Consultation Report [id number] [place]. [address] NAME: SAMSON PALAFOX : 30 STATUS : ADM IN [facility]#: [id number] AGE: 86 ADM/REG DATE : 05/05/16 MR#: [id number] REPORT SERV DATE: 05/06/16 DICTATED BY: STACEY AGUAYO DATE: 05/05/16 REPORT STATUS : Draft TRANSCRIBED BY: CECI DATE: 05/05/16 1. Atrial fibrillation with rapid ventricular response. 2. Coronary artery disease with previous bypass grafting. 3. History of hypertension. 4. History of hyperlipoproteinemia. 5. Chronic dementia. 6. Hymenoptera allergy. 7. History of pneumonia/influenza with residual cough. RECOMMENDATIONS: 1. Rate control. 2. Check an echocardiogram. 3. Check a TSH. 4. We will check another troponin although the minimal troponin spill is probably from a type 2 event; she has no evidence for acute infarction clinically or by EKG. 5. Eliquis was continued. RB/CECI Stacey Aguayo M.D. / [id number] CC: Cliff Bell
--- NOTE | ~2016-05-05 | DS ---
Discharge Summary [id number] [place]. [address] NAME: SAMSON PALAFOX : 30 STATUS : ADM IN PAT#: [id number] AGE: 86 ADM/REG DATE : 05/07/16 MR#: [id number] REPORT SERV DATE: 05/13/16 DICTATED BY: DATE: REPORT STATUS : Draft TRANSCRIBED BY: MODL DATE: 05/12/16 ADMISSION DATE: 05/05/2016 DISCHARGE DATE: 05/12/2016 DISCHARGE DIAGNOSES: 1. Atrial fibrillation with rapid ventricular response. 2. Hyperkalemia. 3. Chronic kidney disease III. 4. Hypotension. 5. Dementia. 6. Wheezes versus crackles. 7. Coronary artery disease, status post coronary artery bypass graft. 8. Hyperlipidemia. CONSULTATIONS: Cardiology, Dr. Jimenez. PROCEDURES AND IMAGIN. 05/05/2016, portable chest x-ray showed low lung volumes with crowding of pulmonary vasculature and bibasilar atelectasis. 2. 05/07/2016, portable chest x-ray showed increased bibasilar atelectasis with mild venous congestion and small left pleural effusion. 3. 05/11/2016, portable chest x-ray showed stable elevation of the left diaphragm with no acute cardiopulmonary disease. HOSPITAL COURSE: This is an 86-year-old white female patient who had been hospitalized until 05/03/[address] [facility]. The patient experienced some chest discomfort and cough at [facility], and she was brought back and admitted due to atrial fibrillation with RVR. Please see admission summary by Dr. Hand on 05/05/2016. During the patient's stay, the patient has had very resistant RVR despite Cardizem drip. The patient was transitioned to amiodarone drip with minimal success of lowering her RVR to below 100. The patient continued to be on amiodarone drip due to the patient's inability at that time to take p.o. amiodarone. The patient did have several episodes of infiltration of amiodarone. Due to patient's somnolence and/or agitation, the patient was discontinued from her Seroquel dosing and it was placed on a p.r.n. basis. This seems to have done well with the patient's mental status and the patient has not exhibited any agitated behavior since changing this to p.r.n. The patient still has labile mood swings depending on the time of day and that particular day. The patient will be alert and oriented to self, occasionally birthday, but not to anything else. Most time replied, I do not know, if asked any question. The patient occasionally exhibits wheezes or crackles, but chest x-rays always appeared to be clear. The patient has had episodes of hyperkalemia and hypokalemia depending on which medications she ingested that day. The patient had blood cultures x2. when she was admitted and has had negative return on both blood cultures x4 days. PHYSICAL EXAMINATION: VITAL SIGNS: The patient's blood pressure is 118/69, temperature is 97.4, heart rate of 114, respirations are 18, O2 saturation is 92% on 3.5 L. Discharge Summary [address] [address] NAME: SAMSON PALAFOX : 30 STATUS : ADM IN [facility]#: [id number] AGE: 86 ADM/REG DATE : 05/07/16 MR#: [id number] REPORT SERV DATE: 05/13/16 DICTATED BY: DATE: REPORT STATUS : Draft TRANSCRIBED BY: MODL DATE: 05/12/16 HEENT: Head is atraumatic, normocephalic. Pupils are equal, round, reactive to light. Sclerae are clear and nonicteric. NECK: Neck is supple with no obvious lymphadenopathy or thyromegaly. Neck veins are flat. CARDIAC: The patient is in atrial fibrillation with RVR from 110 to 120. LUNGS: Lung sounds are clear to auscultation with normal respiratory effort. GI: Abdomen is soft and nontender with active bowel sounds in all four quadrants. Normal bowel habitus. No palpable organomegaly. The patient has obese abdomen. EXTREMITIES: The patient has left lower extremity nonpitting edema to mid marquez. No clubbing or cyanosis. Dorsalis pedis and posterior tibial pulses are palpable bilaterally. MUSCULOSKELETAL: The patient moves all extremities x4. SKIN: Dry and intact with normal color and turgor. NEUROPSYCH: The patient is alert and oriented to self occasionally. Is occasionally cooperative. DISCHARGE MEDICATIONS: Apixaban 5 mg twice daily, aspirin 81 mg daily, amiodarone 200 mg twice daily, Colace 100 mg daily, Lasix 40 mg daily, guaifenesin 600 mg with breakfast and supper, levothyroxine 137 mcg daily, Claritin 10 mg daily, Remeron 7.5 mg at bedtime, Namenda 28 mg XR daily, metoprolol 12.5 mg twice daily, Exelon 13.3 mg patch topically daily, Senokot two tablets with supper p.r.n., Tamoxifen 20 mg daily, Dulcolax suppository 10 mg as needed daily, EpiPen 0.3 mg IM for allergic reaction p.r.n., Seroquel 25 mg q.6 hours p.r.n. agitation, CoQ10 of 100 mg daily, Micro-K 10 mEq daily, Crestor 40 mg daily, Viactiv daily, vitamin B12 of 500 mcg daily, vitamin D 50,000 units weekly, vitamin D3 of 1000 units daily, PreserVision capsules one capsule twice daily. ALLERGIES: THE PATIENT IS ALLERGIC TO WASP VENOM. DISCHARGE INSTRUCTIONS: The patient is to follow up with her PCP in 7 to 10 days. The patient is a DNR/DNI. The patient was unable to have a HUBERT here due to family not wanting to change her DNR status. Approximately 40 minutes has been spent coordinating discharge care of this patient including [id number] encounter and summarization of the discharge. DESMOND/CECI Lisa Fink NP / [id number] CC: MD MARY Lynch SHERRY R.
[~2016-05-05 11:15] MED LIST changes: +B12250T PO; +CEFT2 PO; +CLARIT10 PO; +CO Q-10100 MG PO; +EXELON1 EACH TOP; +LEVOTHYROXIN137 MCG PO; +MICRO-K10 MEQ PO; +MUCINEX600 MG PO; +PACERONE200 MG PO; +PRESERVISION A1 EAC1 PO; +PROLOP100 PO; +SEROQUEL25 PO; +TOPXL25 PO; +VITAMIN D31000 UNIT PO; +VITD PO
[2016-05-05] MEDS ORDERED: LEVAQUIN5T PO (12:59)
[2016-05-05 13:19] LABS: BASOPHILS 0.3 %; BASOPHILS ABSOLUTE 0.02 10/3/uL (0.0-0.16); EOSINOPHILS 1.9 %; EOSINOPHILS ABSOLUTE 0.13 10/3/uL (0.0-0.53); HEMOGLOBIN 13.7 g/dL (12.0-16.0); IMMATURE GRANULOCYTES 0.4 %; IMMATURE GRANULOCYTES ABSOLUTE 0.03 10/3/uL (0.0-0.11); LYMPHOCYTES ABSOLUTE 1.59 10/3/uL (0.67-4.30); MEAN CORPUSCULAR HEMOGLOB 28.3 pg (26.0-34.0); MEAN PLATELET VOLUME 11.5 fL (9.2-13.0); MONOCYTES 13.2 %; MONOCYTES ABSOLUTE 0.91 10/3/uL (0.21-1.20); NEUTROPHILS 61.2 %; NEUTROPHILS ABSOLUTE 4.23 10/3/uL (2.02-8.40); RBC DISTRIBUTION WIDTH 15.7 % (12.0-16.0); RED CELL COUNT 4.84 10/6/uL (4.0-5.6)
[2016-05-05 13:20] LABS: ER CBC TAT 0 Hrs 10 Mins; HEMATOCRIT 42.8 % (36.0-48.0); MANUAL DIFF NO %; MEAN CORPUSCULAR VOLUME 88.4 fL (80-100); PLATELET COUNT 167 10/3/uL (150-400); WHITE BLOOD CELLS 6.9 10/3/uL (4.5-10.5)
[2016-05-05 13:26] LABS: INTERNATIONAL NORMAL RATI 1.6 UNITS (-); PROTIME (NOT ORD) 18.7 SEC (12.0-14.5)
[2016-05-05 13:32] LABS: CALCIUM, SERUM 8.7 MG/DL (8.5-10.4); CHLORIDE, SERUM 101 MMOL/L (96-112); CO2 (CARBON DIOXIDE) 35 MMOL/L (24-34); GFR AFRICAN AMERICAN 53 ML/MIN (>=60); GFR NON AFRICAN AMERICAN 45 ML/MIN (>=60); GLUCOSE, SERUM 110 MG/DL (60-99); POTASSIUM, SERUM 3.3 MMOL/L (3.5-5.3); SODIUM, SERUM 143 MMOL/L (135-148)
[2016-05-05 13:34] LABS: BUN (BLOOD UREA NITROGEN) 12 MG/DL (6-23)
[2016-05-05 13:35] LABS: CHEST PAIN PROFILE TAT 0 Hrs 25 Mins; TROPONIN I 0.06 NG/ML (<0.05)
[2016-05-06 05:32] LABS: BASOPHILS 0.1 %; BASOPHILS ABSOLUTE 0.01 10/3/uL (0.0-0.16); EOSINOPHILS 2.6 %; EOSINOPHILS ABSOLUTE 0.18 10/3/uL (0.0-0.53); HEMATOCRIT 39.3 % (36.0-48.0); HEMOGLOBIN 12.9 g/dL (12.0-16.0); IMMATURE GRANULOCYTES 0.4 %; IMMATURE GRANULOCYTES ABSOLUTE 0.03 10/3/uL (0.0-0.11); LYMPHOCYTES 24.8 %; LYMPHOCYTES ABSOLUTE 1.74 10/3/uL (0.67-4.30); MEAN CORPUS HGB CONC 32.8 g/dL (32.0-36.0); MEAN CORPUSCULAR HEMOGLOB 29.3 pg (26.0-34.0); MEAN CORPUSCULAR VOLUME 89.3 fL (80-100); MEAN PLATELET VOLUME 11.3 fL (9.2-13.0); MONOCYTES ABSOLUTE 0.98 10/3/uL (0.21-1.20); NEUTROPHILS 58.1 %; NEUTROPHILS ABSOLUTE 4.08 10/3/uL (2.02-8.40); PLATELET COUNT 143 10/3/uL (150-400); RBC DISTRIBUTION WIDTH 15.7 % (12.0-16.0)
[2016-05-06 05:35] LABS: MANUAL DIFF NO %
[2016-05-06 05:50] LABS: BUN (BLOOD UREA NITROGEN) 11 MG/DL (6-23); CALCIUM, SERUM 7.9 MG/DL (8.5-10.4); CHLORIDE, SERUM 103 MMOL/L (96-112); CREATININE 0.91 MG/DL (0.55-1.02); GFR AFRICAN AMERICAN 66 ML/MIN (>=60); GFR NON AFRICAN AMERICAN 57 ML/MIN (>=60); GLUCOSE, SERUM 107 MG/DL (60-99); POTASSIUM, SERUM 3.1 MMOL/L (3.5-5.3); SODIUM, SERUM 142 MMOL/L (135-148); TROPONIN I 0.04 NG/ML (<0.05)
[2016-05-06 05:51] LABS: CO2 (CARBON DIOXIDE) 30 MMOL/L (24-34)
[2016-05-06 12:16] LABS: POTASSIUM, SERUM 3.7 MMOL/L (3.5-5.3)
[2016-05-07 06:23] LABS: BASOPHILS 0.1 %; BASOPHILS ABSOLUTE 0.01 10/3/uL (0.0-0.16); EOSINOPHILS 2.5 %; EOSINOPHILS ABSOLUTE 0.18 10/3/uL (0.0-0.53); HEMATOCRIT 41.9 % (36.0-48.0); HEMOGLOBIN 13.6 g/dL (12.0-16.0); IMMATURE GRANULOCYTES 0.3 %; IMMATURE GRANULOCYTES ABSOLUTE 0.02 10/3/uL (0.0-0.11); LYMPHOCYTES 22.5 %; LYMPHOCYTES ABSOLUTE 1.64 10/3/uL (0.67-4.30); MANUAL DIFF NO %; MEAN CORPUS HGB CONC 32.5 g/dL (32.0-36.0); MEAN CORPUSCULAR HEMOGLOB 29.2 pg (26.0-34.0); MEAN CORPUSCULAR VOLUME 89.9 fL (80-100); MEAN PLATELET VOLUME 11.7 fL (9.2-13.0); MONOCYTES ABSOLUTE 1.02 10/3/uL (0.21-1.20); NEUTROPHILS 60.6 %; NEUTROPHILS ABSOLUTE 4.41 10/3/uL (2.02-8.40); PLATELET COUNT 140 10/3/uL (150-400); RBC DISTRIBUTION WIDTH 15.5 % (12.0-16.0); RED CELL COUNT 4.66 10/6/uL (4.0-5.6); WHITE BLOOD CELLS 7.3 10/3/uL (4.5-10.5)
[2016-05-07 06:48] LABS: BUN (BLOOD UREA NITROGEN) 12 MG/DL (6-23); CALCIUM, SERUM 7.8 MG/DL (8.5-10.4); CHLORIDE, SERUM 101 MMOL/L (96-112); CO2 (CARBON DIOXIDE) 28 MMOL/L (24-34); CREATININE 1.01 MG/DL (0.55-1.02); GFR AFRICAN AMERICAN 58 ML/MIN (>=60); GFR NON AFRICAN AMERICAN 50 ML/MIN (>=60); GLUCOSE, SERUM 103 MG/DL (60-99); POTASSIUM, SERUM 3.6 MMOL/L (3.5-5.3); SODIUM, SERUM 140 MMOL/L (135-148); TROPONIN I 0.03 NG/ML (<0.05)
[2016-05-08 09:02] LABS: BASOPHILS 0.4 %; BASOPHILS ABSOLUTE 0.03 10/3/uL (0.0-0.16); EOSINOPHILS ABSOLUTE 0.16 10/3/uL (0.0-0.53); HEMOGLOBIN 13.8 g/dL (12.0-16.0); IMMATURE GRANULOCYTES 0.4 %; IMMATURE GRANULOCYTES ABSOLUTE 0.03 10/3/uL (0.0-0.11); LYMPHOCYTES 21.9 %; LYMPHOCYTES ABSOLUTE 1.77 10/3/uL (0.67-4.30); MANUAL DIFF NO %; MEAN CORPUS HGB CONC 32.9 g/dL (32.0-36.0); MEAN CORPUSCULAR HEMOGLOB 29.1 pg (26.0-34.0); MEAN CORPUSCULAR VOLUME 88.6 fL (80-100); MEAN PLATELET VOLUME 11.5 fL (9.2-13.0); MONOCYTES 9.1 %; MONOCYTES ABSOLUTE 0.74 10/3/uL (0.21-1.20); NEUTROPHILS 66.2 %; NEUTROPHILS ABSOLUTE 5.37 10/3/uL (2.02-8.40); PLATELET COUNT 162 10/3/uL (150-400); RBC DISTRIBUTION WIDTH 15.2 % (12.0-16.0); RED CELL COUNT 4.74 10/6/uL (4.0-5.6); WHITE BLOOD CELLS 8.1 10/3/uL (4.5-10.5)
[2016-05-08 09:08] LABS: BUN (BLOOD UREA NITROGEN) 10 MG/DL (6-23); CALCIUM, SERUM 8.3 MG/DL (8.5-10.4); CHLORIDE, SERUM 99 MMOL/L (96-112); CREATININE 1.02 MG/DL (0.55-1.02); GFR AFRICAN AMERICAN 58 ML/MIN (>=60); GFR NON AFRICAN AMERICAN 50 ML/MIN (>=60); GLUCOSE, SERUM 122 MG/DL (60-99); POTASSIUM, SERUM 3.2 MMOL/L (3.5-5.3); SODIUM, SERUM 141 MMOL/L (135-148)
[2016-05-08 09:09] LABS: CO2 (CARBON DIOXIDE) 34 MMOL/L (24-34)
[2016-05-09 07:16] LABS: BASOPHILS 0.4 %; BASOPHILS ABSOLUTE 0.03 10/3/uL (0.0-0.16); EOSINOPHILS 2.3 %; EOSINOPHILS ABSOLUTE 0.19 10/3/uL (0.0-0.53); HEMATOCRIT 43.1 % (36.0-48.0); HEMOGLOBIN 14.2 g/dL (12.0-16.0); IMMATURE GRANULOCYTES 0.5 %; IMMATURE GRANULOCYTES ABSOLUTE 0.04 10/3/uL (0.0-0.11); LYMPHOCYTES 26.1 %; LYMPHOCYTES ABSOLUTE 2.18 10/3/uL (0.67-4.30); MEAN CORPUS HGB CONC 32.9 g/dL (32.0-36.0); MEAN CORPUSCULAR VOLUME 88.1 fL (80-100); MEAN PLATELET VOLUME 11.8 fL (9.2-13.0); MONOCYTES 9.7 %; MONOCYTES ABSOLUTE 0.81 10/3/uL (0.21-1.20); NEUTROPHILS ABSOLUTE 5.09 10/3/uL (2.02-8.40); PLATELET COUNT 170 10/3/uL (150-400); RBC DISTRIBUTION WIDTH 15.5 % (12.0-16.0); RED CELL COUNT 4.89 10/6/uL (4.0-5.6); WHITE BLOOD CELLS 8.3 10/3/uL (4.5-10.5)
[2016-05-09 07:19] LABS: MANUAL DIFF NO %
[2016-05-09 07:24] LABS: CALCIUM, SERUM 8.7 MG/DL (8.5-10.4); CHLORIDE, SERUM 101 MMOL/L (96-112); CO2 (CARBON DIOXIDE) 31 MMOL/L (24-34); GLUCOSE, SERUM 113 MG/DL (60-99); POTASSIUM, SERUM 3.4 MMOL/L (3.5-5.3); SODIUM, SERUM 140 MMOL/L (135-148)
[2016-05-09 07:34] LABS: BUN (BLOOD UREA NITROGEN) 12 MG/DL (6-23); CREATININE 1.09 MG/DL (0.55-1.02); GFR AFRICAN AMERICAN 53 ML/MIN (>=60); GFR NON AFRICAN AMERICAN 46 ML/MIN (>=60)
[2016-05-10 09:36] LABS: BASOPHILS 0.5 %; BASOPHILS ABSOLUTE 0.04 10/3/uL (0.0-0.16); EOSINOPHILS ABSOLUTE 0.16 10/3/uL (0.0-0.53); HEMATOCRIT 43.8 % (36.0-48.0); HEMOGLOBIN 14.5 g/dL (12.0-16.0); IMMATURE GRANULOCYTES 0.2 %; IMMATURE GRANULOCYTES ABSOLUTE 0.02 10/3/uL (0.0-0.11); LYMPHOCYTES ABSOLUTE 1.97 10/3/uL (0.67-4.30); MANUAL DIFF NO %; MEAN CORPUS HGB CONC 33.1 g/dL (32.0-36.0); MEAN CORPUSCULAR HEMOGLOB 29.2 pg (26.0-34.0); MEAN CORPUSCULAR VOLUME 88.3 fL (80-100); MEAN PLATELET VOLUME 12.1 fL (9.2-13.0); NEUTROPHILS 62.3 %; NEUTROPHILS ABSOLUTE 5.11 10/3/uL (2.02-8.40); PLATELET COUNT 179 10/3/uL (150-400); RBC DISTRIBUTION WIDTH 15.5 % (12.0-16.0); RED CELL COUNT 4.96 10/6/uL (4.0-5.6); WHITE BLOOD CELLS 8.2 10/3/uL (4.5-10.5)
[2016-05-10 09:40] LABS: BUN (BLOOD UREA NITROGEN) 14 MG/DL (6-23); CHLORIDE, SERUM 104 MMOL/L (96-112); CO2 (CARBON DIOXIDE) 31 MMOL/L (24-34); CREATININE 1.18 MG/DL (0.55-1.02); GFR AFRICAN AMERICAN 48 ML/MIN (>=60); GFR NON AFRICAN AMERICAN 42 ML/MIN (>=60); GLUCOSE, SERUM 121 MG/DL (60-99); POTASSIUM, SERUM 4.5 MMOL/L (3.5-5.3); SODIUM, SERUM 143 MMOL/L (135-148)
[2016-05-11 08:17] LABS: CALCIUM, SERUM 8.8 MG/DL (8.5-10.4); CHLORIDE, SERUM 107 MMOL/L (96-112); CREATININE 1.19 MG/DL (0.55-1.02); GFR AFRICAN AMERICAN 48 ML/MIN (>=60); GFR NON AFRICAN AMERICAN 41 ML/MIN (>=60); POTASSIUM, SERUM 5.2 MMOL/L (3.5-5.3); SODIUM, SERUM 144 MMOL/L (135-148)
[2016-05-11 08:18] LABS: BUN (BLOOD UREA NITROGEN) 20 MG/DL (6-23); CO2 (CARBON DIOXIDE) 26 MMOL/L (24-34); GLUCOSE, SERUM 96 MG/DL (60-99)
[2016-05-12 13:29] LABS: BUN (BLOOD UREA NITROGEN) 20 MG/DL (6-23); CALCIUM, SERUM 8.7 MG/DL (8.5-10.4); CHLORIDE, SERUM 101 MMOL/L (96-112); CO2 (CARBON DIOXIDE) 31 MMOL/L (24-34); CREATININE 1.28 MG/DL (0.55-1.02); GFR AFRICAN AMERICAN 44 ML/MIN (>=60); GFR NON AFRICAN AMERICAN 38 ML/MIN (>=60); GLUCOSE, SERUM 133 MG/DL (60-99); POTASSIUM, SERUM 3.6 MMOL/L (3.5-5.3); SODIUM, SERUM 143 MMOL/L (135-148)
[2016-05-13 11:37] LABS: BUN (BLOOD UREA NITROGEN) 21 MG/DL (6-23); CALCIUM, SERUM 8.5 MG/DL (8.5-10.4); CHLORIDE, SERUM 98 MMOL/L (96-112); CO2 (CARBON DIOXIDE) 32 MMOL/L (24-34); CREATININE 1.47 MG/DL (0.55-1.02); GFR AFRICAN AMERICAN 37 ML/MIN (>=60); GFR NON AFRICAN AMERICAN 32 ML/MIN (>=60); GLUCOSE, SERUM 157 MG/DL (60-99); POTASSIUM, SERUM 3.5 MMOL/L (3.5-5.3); SODIUM, SERUM 140 MMOL/L (135-148)
[2016-05-14 06:37] LABS: BUN (BLOOD UREA NITROGEN) 19 MG/DL (6-23); CALCIUM, SERUM 8.7 MG/DL (8.5-10.4); CHLORIDE, SERUM 102 MMOL/L (96-112); CO2 (CARBON DIOXIDE) 31 MMOL/L (24-34); CREATININE 1.25 MG/DL (0.55-1.02); GFR AFRICAN AMERICAN 45 ML/MIN (>=60); GFR NON AFRICAN AMERICAN 39 ML/MIN (>=60); POTASSIUM, SERUM 3.4 MMOL/L (3.5-5.3); SODIUM, SERUM 141 MMOL/L (135-148)
[2016-05-14 06:41] LABS: GLUCOSE, SERUM 114 MG/DL (60-99)
== END 2016-05-14 18:55 | DRG 309 ==
LOC: ER 11:15 → 6NO 16:16
PROVIDERS: Emergency Medicine; Hospitalist; Internal Medicine; Nurse Practitioner; Nurse Practitioner Family
DX: I48.2 Chronic atrial fibrillation (principal); I13.0 Hypertensive heart and chronic kidney disease with heart failure and stage 1 through stage 4 chronic kidney disease, or unspecified chronic kidney disease; F03.90 Unspecified dementia, unspecified severity, without behavioral disturbance, psychotic disturbance, mood disturbance, and anxiety; I50.42 Chronic combined systolic (congestive) and diastolic (congestive) heart failure; E87.5 Hyperkalemia; N18.3 Chronic kidney disease, stage 3 (moderate); I25.10 Atherosclerotic heart disease of native coronary artery without angina pectoris; E78.5 Hyperlipidemia, unspecified; E87.6 Hypokalemia; Z87.01 Personal history of pneumonia (recurrent); Z23 Encounter for immunization; Z95.1 Presence of aortocoronary bypass graft; Z91.038 Other insect allergy status; Z66 Do not resuscitate; Z79.82 Long term (current) use of aspirin; Z87.891 Personal history of nicotine dependence; Z91.19 Patient's noncompliance with other medical treatment and regimen
CPT/HCPCS: 71010; 80048; 83735; 83880; 84132; 84484; 85025; 85610; 85730; 87040; 90662; 93005; 94640; 96374; 96375; 97116-GP; 97162-GP; 99285; A9270-GY; C8924; C8929; G0008; G8978-CM-GP; G8979-CL-GP; J0282; J3473; Q9957